=== PATIENT | female | born 1980 | race Caucasian/White ===

== ENCOUNTER 2017-05-31 22:53 | Emergency (ER) | payer SELFPAY ==
[2017-05-31 23:15] VITALS: BP 135/96
[2017-06-01 00:42] LABS: Bacteria,Urine 2+ /HPF (Negative); Bilirubin,Urine NEG (Negative); Blood,Urine MOD (Negative); Ketones,Urine TR mg/dL (Negative); Leukocyte Esterase,Urine LG (Negative); Mucus,Urine 3+ /HPF; Nitrite,Urine NEG (Negative); Urobilinogen,Urine < 2.0 mg/dL (<2.0)
--- NOTE | 2017-06-02 13:18 | ED Elopement Review ---
ED Pt Elopement review - Results review Lab results: Laboratory Tests 05/31/17 23:44 Urine Color Yellow Urine Turbidity Slightly-cloudy Urine pH 5.0 Ur Specific [place] 1.028 Urine Protein 30 mg/dl Urine Glucose (UA) Neg Urine Ketones Tr Urine Blood Mod Urine Nitrite Neg Urine Bilirubin Neg Urine Urobilinogen < 2.0 Ur Leukocyte Esterase Lg Urine WBC (Auto) 22.0 H Urine RBC (Auto) 28.0 U Epithel Cells (Auto) 16.0 H Urine Bacteria (Auto) 2+ Urine Mucus 3+ - Call Back decision Pt Call Back Decision: No action required
== END 2017-06-01 02:00 | disposition left against medical advice (07) ==
LOC: ED 22:53
DX: R10.9 Unspecified abdominal pain (principal); Z53.21 Procedure and treatment not carried out due to patient leaving prior to being seen by health care provider
CPT/HCPCS: 81001